=== PATIENT | male | born 1955 | race Caucasian/White ===

== ENCOUNTER 2017-08-17 13:50 | Outpatient (CLI) | payer OTHER ==
--- NOTE | 2017-08-17 16:38 | RAD ---
LEFT HIP TWO VIEWS: History: 61-year-old male with left hip pain for disability evaluation, osteoarthritis. IMPRESSION: Minimal degenerative and osteoarthrosis changes, left hip joint, without fracture, dislocation or ot her significant acute osseous abnormality. POS: [facility]
--- NOTE | 2017-08-17 16:40 | RAD ---
LEFT KNEE TWO VIEWS: History: Knee pain. Disability evaluation. FINDINGS: There are mild to moderate degenerative changes noted. Mild loss of the medial joint space. Mild spu rring from medial joint compartment. There is narrowing and spurring at the patellofemoral joint. No significant joint effusion identified. IMPRESSION: Moderate degenerative changes of the left knee noted. POS: [facility]
--- NOTE | 2017-08-17 17:29 | RAD ---
RIGHT HIP TWO VIEWS: HISTORY: A 61-year-old male with right hip pain for disability evaluation. Osteoarthritis. FINDINGS: Two views of the right hip demonstrate some osteoarthrosis and degenerative changes of the right hip joint. No fracture or dislocation. IMPRESSION: Osteoarthrosis and degenerative changes of the right hip joint. POS: [facility]
--- NOTE | 2017-08-17 18:09 | RAD ---
RIGHT KNEE TWO VIEWS: History: 61-year-old male for knee pain with disability evaluation, osteoarthritis. FINDINGS: Two views of the right knee demonstrates tricompartment arthrosis and degenerative changes, particul seble the medial and femoral patellar compartments. IMPRESSION: Degenerative and osteoarthrosis changes without fracture or dislocation. POS: [facility]
== END 2017-08-17 13:51 | disposition home or self-care (01) ==
LOC: NAV RAD 13:50
PROVIDERS: ATTEND Family Medicine
DX: M15.9 Polyosteoarthritis, unspecified (principal); M16.11 Unilateral primary osteoarthritis, right hip; M17.12 Unilateral primary osteoarthritis, left knee

== ENCOUNTER 2018-09-19 11:56 | Emergency (ER) | payer MEDICAID, OTHER ==
[~2018-09-19 11:56] MED LIST: Iopamidol 370 76% 100 ML VIAL ONE
[2018-09-19] MEDS ORDERED: Amlodipine 5 MG TAB ONE (12:39)
[2018-09-19] MEDS ORDERED: Lisinopril 20 MG TAB ONE (12:39)
[2018-09-19 12:48] LABS: #Basophils 0.1 thou/uL (0.0-0.2); #Eosinphils 0.2 thou/uL (0.0-0.7); #Lymphocytes 2.5 thou/uL (1.20-3.40); #Neutrophils 4.6 thou/uL (1.40-6.50); %Basophils 0.8 % (0.0-1.0); %Eosinophils 2.7 % (0.0-10.0); %Lymphocytes 29.8 % (21.0-51.0); %Monocytes 12.4 % (0.0-10.0); %Neutrophils 54.2 % (42.0-75.0); Mean Corpuscular HGB CONC 32.3 g/dL (32.0-36.0); Mean Corpuscular Hemoglobin 29.9 pg (27.0-31.0); Mean Corpuscular Volume 92.8 fL (78.0-98.0); Mean Platelet Volume 7.8 fL (7.4-10.4); Platelet Count 199 thou/uL (130-400); RBC Distribution Width 11.3 % (11.5-14.5); Red Blood Cell (RBC) Count 5.36 mill/uL (4.70-6.10); White Blood Cell (WBC) Count 8.4 thou/uL (4.8-10.8)
[2018-09-19 13:05] LABS: ALT (SGPT) 35 U/L (8-55); AST (SGOT) 31 U/L (5-34); Albumin 4.3 g/dL (3.4-4.8); Alkaline Phosphatase 85 U/L (40-150); Anion Gap 13 mmol/L (10-20); BUN (Urea Nitrogen) 14 mg/dL (8.4-25.7); Bilirubin, Total 0.6 mg/dL (0.2-1.2); Calc. Creatinine Clearance 0 mL/min (70-130); Calcium 10.3 mg/dL (7.8-10.44); Carbon Dioxide 25 mmol/L (23-31); Chloride 104 mmol/L (98-107); Estimated GFR-MDRD 83; Globulin 3.9 g/dL (2.4-3.5); Glucose 123 mg/dL (80-115); Magnesium 2.3 mg/dL (1.6-2.6); Potassium 3.9 mmol/L (3.5-5.1); Protein, Total 8.2 g/dL (5.8-8.1); Sodium 138 mmol/L (136-145)
[2018-09-19 13:06] LABS: Troponin I 0.014 ng/mL (< 0.028)
--- NOTE | 2018-09-19 14:21 | RAD ---
CHEST 2 VIEWS: HISTORY: Dyspnea. COMPARISON: None. FINDINGS: Atherosclerosis of the aorta. Enlarged cardiac silhouette. Pulmonary vessels are slightly prominent . Patchy interstitial opacities likely due to edema or infiltrate. No consolidation or mass. No pl eural effusion or pneumothorax. IMPRESSION: Congestive heart failure. Superimposed infiltrate cannot be excluded. Continued surveillance. POS: [facility]
--- NOTE | 2018-09-19 15:49 | CT ---
CT ANGIOGRAM OF THE CHEST: HISTORY: Leg swelling. Dyspnea. COMPARISON: None. TECHNIQUE: CT angiogram of the chest is performed in the axial plane. Three-dimensional reformatted images are submitted for interpretation. FINDINGS: Limited evaluation of the pulmonary arterial system due to poor timing of contrast bolus. There is n o mediastinal mass, lymphadenopathy, or hematoma. Heart size is within normal limits. NO significan t pericardial fluid. Visualized upper solid organs are unremarkable. Dependent atelectatic changes are noted. Patchy ground-glass opacities throughout the lung parenchym a likely due to edema or infiltrate. Trachea and central bronchi are patent. Small bleb in the righ t lower lobe is incidental. No pleural effusion or pneumothorax. No evidence of pulmonary arterial embolism with regards to the central pulmonary arteries. The lobar , segmental, and subsegmental arteries could not be adequately assessed. No lytic or blastic lesions in the osseous structures. Visualized aorta has a normal caliber. No pe riaortic fat stranding. No aneurysm or dissection. IMPRESSION: 1. Limited evaluation of the pulmonary arterial system due to poor timing of contrast bolus. No obv ious central pulmonary artery embolism. 2. Ground-glass opacities in the lung parenchyma due to edema or infiltrate. POS: [facility]
== END 2018-09-19 15:36 | disposition home or self-care (01) ==
LOC: NAV ERS 11:56
DX: J84.9 Interstitial pulmonary disease, unspecified (principal); R60.0 Localized edema; E78.5 Hyperlipidemia, unspecified; E78.00 Pure hypercholesterolemia, unspecified; J44.9 Chronic obstructive pulmonary disease, unspecified; I10 Essential (primary) hypertension; Z87.442 Personal history of urinary calculi; Z87.891 Personal history of nicotine dependence; Z79.899 Other long term (current) drug therapy
CPT/HCPCS: 71046; 71275; 80053; 83735; 83880; 84484; 85025; 85379; 93005